=== PATIENT | male | born 1940 | race Caucasian/White ===

== ENCOUNTER 2016-11-22 08:33 | Outpatient (CLI) | payer MEDICARE, OTHER ==
[~2016-11-22] VITALS: Ht 182.9 cm; Wt 88.6 kg
--- NOTE | ~2016-11-22 | HEMODYNAMI ---
PATIENT:ELIZABETH PINEDA V MEDICAL RECORD: [id number] : 42 LOCATION:[facility] ADMISSION DATE: 11/22/16 Generatedon:11/22/201610:36 Patient name: ELIZABETH PINEDA Patient #: [id number] SSN: [id number] : 1940 Date of study: 11/22/2016 Page: Of Hemodynamic Procedure Report Patient Data Patient Demographics Procedure consent was obtained First Name: ELIZABETH Gender: Male Last Name: MIRIAM : 1940 Middle Initial: V Age: 76 year(s) Patient #: [id number] Race: Unknown SSN: [id number] Additional ID: [id number] Contact details [address]: [address] [place] [address] State: [place] City: [place] Zip code: [address] Admission Admission Data Admission Date: 11/22/2016 Admission Time: 8:33 Arrival Date: 11/22/2016 Arrival Time: 0:00 Weight (lbs.): 199 Weight (kg.): 90.26 Lab Results Lab Result Date: 11/22/2016 Lab Result Time: 0:00 Biochemistry Name Units Result Min Max BUN mg/dl 14 --(--*-)-- 7 18 Creatinine mg/dl 1.4 --(----)*- 0.6 1.3 CBC Name Units Result Min Max Hemoglobin g/dl 14.6 --(-*--)-- 13.5 17.5 Procedure Procedure Types Cath Procedure Diagnostic Procedure C [facility] w/Coronaries PCI Procedure Coronary Stent Initial Miscellaneous Procedures Moderate Sedation up to 15 minutes Procedure Description Procedure Date Procedure Date: 11/22/2016 Procedure Start Time: 10:18 Procedure End Time: 10:31 Procedure Staff Name Function Norm Niño MD Performing Physician Lyudmila Diallo RT Scrub Kin Damon RN Nurse Rachael Severino RT Monitor Procedure Data Cath Procedure Fluoroscopy Diagnostic fluoroscopy Total fluoroscopy Time: 3.3 time: 3.3 min min Diagnostic fluoroscopy Total fluoroscopy dose: 301 dose: 301 mGy mGy Contrast Material Contrast Material Type Amount (ml) Isovue 300 86 Entry Location Entry Primary Successful Side Size Upsize Upsize Entry Closure Edward ccessful Closure Location (Fr) 1 (Fr) 2 (Fr) Remarks Device Remarks Radial Right 6 Fr Mechanical artery Short Compression Estimated blood loss: 10 ml Diagnostic catheters Device Type Used For End Catheter Placement Terumo 5Fr [place] 110cm Procedure catheter Diagnostic Infinity 5Fr Procedure AR 2 MOD catheter Procedure Complications No complications Procedure Medications Medication Administration Route Dosage Oxygen NC 2 l/min Lidocaine 2% added to field 20 Heparin Flush Bag added to field 2 bags (1000units/500ml NS) 0.9% NaCl I.V. 100 ml/hr Versed I.V. 1 mg Fentanyl I.V. 50 mcg Versed I.V. 1 mg Fentanyl I.V. 50 mcg Versed I.V. 1 mg Fentanyl I.V. 50 mcg Radial Cocktail I.A. 1 syringe (Verapomil 2mg/Nitro 400mcg/Heparin 1500units) Heparin Bolus I.V. 4000 units Integrilin (Bolus I.V. 7.9 ml 2mg/ml) Versed I.V. 1 mg Fentanyl I.V. 50 mcg Plavix P.O. 600 mg Hemodynamics Rest HGB: 14.6 (g/dl) Heart Rate: 58 (bpm) Snapshots Pre Cath Intra NCS Post Cath Vital Signs Time Heart Resp SPO2 NIBP (mmHg) Rhythm Pain Sedation Rate (ipm) (%) Status Level (bpm) 9:55:35 84 14 98 158/91(116) NSR 0 (11) 10(A) , No pain 9:59:55 67 13 99 153/81(120) NSR 0 (11) 10(A) , No pain 10:04:13 66 16 99 149/81(107) NSR 0 (11) 10(A) , No pain 10:08:29 72 15 96 148/86(102) NSR 0 (11) 10(A) , No pain 10:13:22 70 17 94 147/83(102) NSR 0 (11) 10(A) , No pain 10:17:42 69 15 94 163/80(121) NSR 0 (11) 9(A) , No pain 10:21:52 26 15 94 125/79(111) NSR 0 (11) 9(A) , No pain 10:26:04 84 16 93 137/78(116) NSR 0 (11) 9(A) , No pain 10:30:20 83 16 94 139/79(111) NSR 0 (11) 9(A) , No pain 10:35:15 86 16 95 135/79(98) NSR 0 (11) 10(A) , No pain Medications Time Medication Route Dose Verified Delivered Reason Note s Effectiveness by by 10:04:06 Oxygen NC 2 l/min Norm Buffie used for [place] Damon RN procedure 10:04:13 Lidocaine 2% added 20ml Norm Norm for local to vial Sal[place] Niño MD anesthetic field 10:04:19 Heparin Flush added 2 bags Normleo Zheng used for Bag to Salinas Niño MD procedure (1000units/500ml field NS) 10:04:39 0.9% NaCl I.V. 100 Norm Buffie Per physician ml/hr Salinas Damon RN 10:09:12 Versed I.V. 1 mg Norm Baldwinie for sedation Salinas Damon RN 10:09:20 Fentanyl I.V. 50 mcg Norm Buffie for sedation Salinas Damon RN 10:14:31 Versed I.V. 1 mg Norm Buffie for sedation Salinas Damon RN 10:14:35 Fentanyl I.V. 50 mcg Norm Buffie for sedation Sal[place] Damon RN 10:17:54 Versed I.V. 1 mg Norm Baldwinie for sedation Sal[place] Damon RN 10:17:58 Fentanyl I.V. 50 mcg Norm Baldwinie for sedation Salinas Damon RN 10:20:12 Radial Cocktail I.A. 1 Norm Norm for (Verapomil syringe Sal[place] Niño MD vasodilation 2mg/Nitro 400mcg/Heparin 1500units) 10:24:28 Heparin Bolus I.V. 4000 Norm Sanderson for veri fied units Salinas Damon RN anticoagulation with dr niño 10:26:21 Integrilin I.V. 7.9 ml Norm Sanderson for Wast ed (Bolus 2mg/ml) Salinas Damon RN antiplatelet 2.1 ml therapy of vial 10:29:02 Versed I.V. 1 mg Norm Sanderson for sedation Salinas Damon RN 10:29:06 Fentanyl I.V. 50 mcg Norm Sanderson for sedation Salinas Damon RN 10:34:04 Plavix P.O. 600 mg Norm Sanderson for Salinas Damon RN antiplatelet therapy Procedure Log Time Note 9:39:37 Diagnostic Cath Status : Elective 9:39:49 Kin Damon RN sent for patient. Start room use. 9:39:51 Time tracking: Regular hours 9:39:56 Plan of Care:Hemodynamics will remain stable., Cardiac rhythm will remain stable., Comfort level will be maintained., Respiratory function will remain adequate., Patient/ family verbilizes understanding of procedure., Procedure tolerated without complication., Recovers from procedure without complications.. 9:54:07 Patient received from Pre/Post Procedure Room to CCL 3 Alert and oriented. Tansferred to table in Supine position. 9:54:13 Warm blankets applied, and bernice hugger turned on for patient comfort. 9:54:13 Correct patient and procedure confirmed by team. 9:54:15 Signed procedure consent form obtained from patient. 9:54:16 ECG and BP/O2 sat monitors applied to patient. 9:54:20 Vital chart was started 9:54:33 Full Disclosure recording started 9:54:47 H&P Date Dictated: 11/14/2016 Within 30 days and on chart., H&P Addendum completed by physician on day of procedure. (MUST COMPLETE FOR ALL OUTPATIENTS). 9:54:48 Pre-procedure instructions explained to patient. 9:54:49 Pre-op teaching completed and patient verbalized understanding. 9:54:50 Family in waiting room. 9:54:52 Patient NPO since Midnight. 9:54:59 Is the patient allergic to Iodine/contrast media? No. 9:55:00 Was the patient premedicated? No 10:00:30 Baseline sample Acquired. 10:00:36 Rhythm: sinus rhythm 10:00:45 Is patient on blood thinner?No 10:00:53 Patient diabetic? No. 10:00:55 Snore? Yes 10:00:58 Sleep apnea? No 10:01:02 Opens mouth fully? Yes 10:01:08 Dentures? Yes . 10:01:16 Patient pain scale 0/10 ?. 10:01:25 IV patent on arrival in left hand with 0.9% NaCl at O. 10:03:42 Lab results completed and on chart. 10:03:46 Right Radial & Right Groin area was prepped with chlora-prep and draped in sterile fashion 10:03:48 Alarms reviewed by R. N. 10:03:48 Sharps counted by scrub and verified by R.N. 10:03:50 Physician paged 10:03:54 Physician arrived 10:03:55 --------ALL STOP TIME OUT------ 10:03:56 Final Timeout: patient, procedure, and site verified with staff and physician. All members of the team are in agreement. 10:03:58 Right Radial & Right Groin site verified by team. 10:04:02 Sedation plan: IV Moderate Sedation Versed, Fentanyl 10:04:06 Oxygen 2 l/min NC was administered by Kin Damon RN; used for procedure; 10:04:13 Lidocaine 2% 20ml vial added to field was administered by Norm Niño MD; for local anesthetic; 10:04:19 Heparin Flush Bag (1000units/500ml NS) 2 bags added to field was administered by Norm Niño MD; used for procedure; 10:04:39 0.9% NaCl 100 ml/hr I.V. was administered by Kin Damon RN; Per physician; 10:06:12 Use device set Radial Dx 10:06:13 Acist Syringe opened to sterile field. 10:06:13 Medline Cath Pack opened to sterile field. 10:06:13 Bag Decanter opened to sterile field. 10:06:14 Terumo 6Fr Slender Glidesheath opened to sterile field. 10:06:14 St Micky 260cm J .035 wire opened to sterile field. 10:06:15 Acist Hand Control opened to sterile field. 10:06:15 Acist Manifold opened to sterile field. 10:06:16 Tegaderm 4 x 4 opened to sterile field. 10:07:13 Lab Result : BUN 14 mg/dl 10:07:13 Lab Result : Hemoglobin 14.6 g/dl 10:07:13 Lab Result : Creatinine 1.4 mg/dl 10:08:12 Zero performed for pressure channel P1 10:08:23 Zero performed for pressure channel P1 10:08:39 Zero performed for pressure channel P1 10:08:54 Zero performed for pressure channel P1 10:09:12 Versed 1 mg I.V. was administered by Kin Damon RN; for sedation; 10:09:20 Fentanyl 50 mcg I.V. was administered by Kin Damon RN; for sedation; 10:09:45 Zero performed for pressure channel P1 10:11:58 Patient Weight : 90.26 kg 10:12:06 Arrival Date: 11/22/2016 12:00:00 AM 10:14:31 Versed 1 mg I.V. was administered by Kin Damon RN; for sedation; 10:14:35 Fentanyl 50 mcg I.V. was administered by Kin Damon RN; for sedation; 10:17:54 Versed 1 mg I.V. was administered by Kin Damon RN; for sedation; 10:17:57 Procedure started. 10:17:58 Fentanyl 50 mcg I.V. was administered by Kin Damon RN; for sedation; 10:18:02 Local anesthetic to right radial artery with Lidocaine 2% by Norm Niño MD.INITIAL ACCESS ONLY 10:18:11 A 6 Fr Short sheath was inserted into the Right Radial artery 10:20:07 LV gram done using BOYLE 10:20:12 Radial Cocktail (Verapomil 2mg/Nitro 400mcg/Heparin 1500units) 1 syringe I.A. was administered by Norm Niño MD; for vasodilation; 10:20:31 A Nutech Medicalumo 5Fr [place] 110cm catheter was advanced over the wire and used for Procedure. 10:20:44 EF : 60 % 10:20:55 LCA angiography performed. 10:23:00 Catheter removed. 10:23:19 A Diagnostic Infinity 5Fr AR 2 MOD catheter was advanced over the wire and used for Procedure. 10:23:29 RCA angiography performed. 10:24:13 Merit BasixCompak Inflation Kit opened to sterile field. 10:24:14 Allen Whisper J 300cm 0.014 guide wire opened to sterile field. 10:24:28 Heparin Bolus 4000 units I.V. was administered by Kin Damon RN; for anticoagulation; verified with dr niño 10:24:29 Walkabout Launcher 6Fr AR 2.0 guide catheter opened to sterile field. 10:25:05 Proceeding to intervention. 10:25:19 PCI Cath status Elective 10::31 6 Fr AR 2 guide catheter was inserted over the wire 10::38 Whis wire advanced. 10:: Integrilin (Bolus 2mg/ml) 7.9 ml I.V. was administered by Kin Damon RN; for antiplatelet therapy; Wasted 2.1 ml of vial 10:: Inflation Number: 1 A Medtronic Integrity 3.5 X 18 stent was prepped and advanced across the Mid RCA. The stent was deployed at 11 FELICITAS for 0:10 (min:sec). 10::34 Inflation number: 2 The stent balloon was then re-inflated across the Mid RCA to 17 FELICITAS for 0:00 (min:sec). 10:28:14 Terumo TR Band Standard opened to sterile field. 10::31 Stent catheter was removed intact over wire. 10::32 Wire removed. 10::33 Guide catheter removed. 10:29:02 Versed 1 mg I.V. was administered by Kin Damon RN; for sedation; 10::06 Fentanyl 50 mcg I.V. was administered by Kin Damon RN; for sedation; 10:30:08 Sheath removed intact; hemostasis achieved with Mechanical Compression to the Right Radial artery. 10:30:11 Procedure ended.(Physican Out) 10:30:17 Fluoroscopy time 03.30 minutes. 10:30:22 Fluoroscopy dose: 301 mGy 10:30:22 Flurop Dose total: 301 10:30:28 Contrast amount:Isovue 300 86ml. 10:30:36 Sharps counted by scrub and verified by R.N. 10:30:51 TR band inflated with 10cc of air. 10:30:52 Insertion/operative site no bleeding no hematoma. 10:30:58 Post right radial artery:stable 10:30:59 Post Procedure Pulses reassessed and unchanged 10:31:04 Post procedure rhythm: unchanged. 10:31:07 Estimated blood loss: 10 ml 10:31:13 Post procedure instruction explained to patient.Patient verbalizes understanding. ::19 Procedure type changed to Cath procedure, Diagnostic procedure, LHC, LHC w/Coronaries, PCI procedure, Coronary Stent Initial, Miscellaneous Procedures, Moderate Sedation up to 15 minutes 10:31:21 Procedure and supply charges have been captured, reviewed, submitted and are correct. 10:31:43 Procedure Complication : No complications 10:31:46 Vital chart was stopped 10:31:47 See physician's report for complete and final results. 10:31:49 Report given to Pre/Post Procedure Room. 10:31:53 Patient transfered to Pre/Post Procedure Room with Stretcher. 10:31:55 Procedure ended. 10:31:55 Full Disclosure recording stopped 10:31:59 End room use (Document Last) 10:32:12 ACC-PCI Only Patient was given prescriptions, or instructed by Norm Niño MD to start/continue the following medications upon discharge: Plavix 10:34:04 Plavix 600 mg P.O. was administered by Kin Damon RN; for antiplatelet therapy; Intervention Summary Intervention Notes Time ActionType Lesion and Equipment Action# Pressure Duration Attributes Used 10:27:21 Place stent Mid RCA Medtronic 1 11 00:10 Integrity 3.5 X 18 stent 10:27:34 Reinflate Mid RCA Medtronic 2 17 00:00 stent Integrity balloon 3.5 X 18 stent Device Usage Item Name Manufacture Quantity Catalog Hospital Part Current Minimal Lot# / Number Charge Number Stock Stock Serial# Code Acist Acist 1 [id number] 553896 711323 20 Syringe Medical Systems Inc Medline Cardinal 1 [id number] 812399 22265 762588 5 Cath Pack Health Bag Microtek 1 2002S 000804 10591 450107 5 SKURA Medical Inc. Terumo 6Fr Terumo 1 [id number] 335292 314474 339019 [address] Micky St Micky 1 [id number] 561550 627112 558960 30 260cm J .035 wire Acist Hand Acist 1 21422 377816 244066 576092 5 Control Medical Systems Inc Acist Acist 1 21860 837120 929743 257675 5 Manifold Medical Systems Inc Tegaderm 4 3M 1 [id number] 023074 866312 790464 5 x 4 Terumo 5Fr Terumo 1 40-6193 172068 747140 598560 5 [place] 110cm catheter Diagnostic Cardinal 1 [id number] 530510 758843 836203 20 IndiaCollegeSearch 5Fr AR 2 MOD catheter Merit Merit 1 [id number] 318832 116112 622462 15 [facility] Medical Inflation Kit Allen Allen 1 [id number] 791288 808014 310554 5 Whisper J Vascular 300cm 0.014 guide wire Medtronic Medtronic 1 [id number] 300559 85094 504525 1 Launcher 6Fr AR 2.0 guide catheter Medtronic Medtronic 1 [id number] 699945 116345 9 [id number] Integrity 3.5 X 18 stent Terumo TR Terumo 1 [id number] 025817 281779 881931 40 Band Standard Signature Audit [place] Stage Time Signature Unsigned Intra-Procedure 11/22/2016 Rachael Severino 10:36:04 AM RT(R) Signatures Monitor : Rachael Severino Signature : RT Date : Time : [place] [id number] [facility] [place] [address]
[2016-11-22] MEDS ORDERED: BAYER CHEWABLE81 MG PO (09:01)
[2016-11-22] MEDS ORDERED: NORVASC10 MG PO (09:01)
[2016-11-22] MEDS ORDERED: LIPITOR10 MG (09:03)
[2016-11-22] MEDS ORDERED: VITAMIN D31000 UNIT PO (09:04)
[2016-11-22] MEDS ORDERED: VALIUM10 MG PO (09:05)
[2016-11-22] MEDS ORDERED: MULTIPLE VITAMI1 TA1 PO (09:05)
[2016-11-22] MEDS ORDERED: NAPROXEN250 MG PO (09:06)
[2016-11-22] MEDS ORDERED: OMEPRAZOLE20 M1 PO (09:06)
[2016-11-22 09:08] VITALS: BP 164/92; Ht 182.9 cm; Wt 88.6 kg
[2016-11-22 09:17] LABS: BASOPHILS 0.5 % (0.0-2.0); EOSINOPHILS 1.8 % (0-7); HEMATOCRIT 43.9 % (42.0-54.0); HEMOGLOBIN 14.6 g/dL (13.5-17.5); IMMATURE GRANULOCYTES 0.3 % (0-5); LYMPHOCYTES 32.9 % (15-50); MCH 28.1 pg (26.0-34.0); MCHC 33.3 g/dL (31.0-37.0); MCV 84.6 fL (80.0-100.0); MEAN PLATELET VOLUME 10.4 fL (7.4-10.4); NEUTROPHILS 56.5 % (40-80); RBC 5.19 10x6/uL (4.20-6.10); RDW 13.9 % (11.5-14.5); WBC 6.5 10x3/uL (4.8-10.8)
[2016-11-22 09:19] LABS: PLATELET COUNT 168 10x3/uL (130-400)
[2016-11-22 09:29] LABS: ANION GAP 11.4 mmol/L (8-16); CARBON DIOXIDE 30.3 mmol/L (21.0-32.0); CREATININE - SERUM 1.4 mg/dL (0.6-1.3); POTASSIUM - SERUM 3.7 mmol/L (3.5-5.1)
[2016-11-22] MEDS ORDERED: PLAVIX75 MG PO (11:37)
--- NOTE | 2016-11-22 12:45 | NUR ---
1100-RIGHT WRIST WITH TR BAND IN PLACE, NO HEMATOMA OR BLEEDING NOTED, DENIES CHEST PAIN 1130- NO CHANGES IN ASSESSMENT, AT SIDE
--- NOTE | 2016-11-22 17:05 | NUR ---
1400- TR BAND OFF PER PROTOCOL, BANDAID APPLIED. IV D'C WITH CATH TIP INTACT, WRITTEN AND VERBAL INSTRUCTIONS GIVEN TO PT AND , VERBAL UNDERSTANDING NOTED. DENIES FURTHUR NEEDS AT THIS TIME.
--- NOTE | 2016-11-23 08:41 | OP ---
PATIENT NAME: ELIZABETH PINEAD V MEDICAL RECORD: [id number] :42 LOCATION:D.CAT ADMISSION DATE: SURGEON: CYNTHIA BROWN MD DATE OF OPERATION: 11/22/2016 PROCEDURES: 1. PTCA stent, RCA. 2. Left heart catheterization. 3. Selective coronary angiography. 4. Left ventriculogram. PROCEDURE IN DETAIL: After informed consent was obtained and after detailed explanation of risks, benefits as well as alternative therapies, the patient elected to proceed with angiogram and angioplasty. The right radial area was prepped and draped in normal sterile fashion. The right radial artery was cannulated via modified Seldinger technique with placement of 6-Honduran sheath. All catheters exchanged through this sheath. FINDINGS: Left ventriculogram was performed in the standard 30-degree BOLYE view, reveals good cardiac wall motion throughout all segments. Overall ejection fraction estimated 60%. SELECTIVE CORONARY ANGIOGRAPHY: 1. Left main showed no significant angiographic disease. 2. Left anterior descending has moderate irregularities, but no flow-limiting stenosis. 3. The left circumflex has a 50% stenosis of the first obtuse marginal, but this does not appear to be flow-limiting. 4. The right coronary has a 70%-75% stenosis that is hazy in the proximal vessel, otherwise only moderate irregularities. PTCA STENT OF THE RIGHT CORONARY: The stent used was a 3.5 x 15 mm Integrity taken to 17 atmospheres. Result was 0% residual stenosis. OVERALL IMPRESSION: Successful percutaneous transluminal coronary angioplasty stent of the right coronary artery going from 70%-75% initial stenosis to 0% residual stenosis. TRANSINT:[id number] Voice Confirmation ID: [id number] DOCUMENT ID: [id number] CYNTHIA BROWN MD at 0841 CC: [id number] DICTATION DATE: 11/22/16 1033 BOTTLE CASER: 11/22/16 1837 [facility] CLI 11/22/[address] [id number]
== END 2016-11-22 14:30 | disposition home or self-care (01) ==
LOC: D.CATH 08:33
PROVIDERS: Internal Medicine Interventional Cardiology
DX: I25.119 Atherosclerotic heart disease of native coronary artery with unspecified angina pectoris (principal)